=== PATIENT | female | born 1980 | race Caucasian/White ===

== ENCOUNTER 2016-12-16 19:16 | Emergency (ER) | payer SELFPAY ==
--- NOTE | ~2016-12-16 | ER ---
PATIENT'S NAME: LIBERTAD BARRIOS [facility] AGE: 36 Y [address] ROOM: [place] [address] LOCATION: [facility] ADMIT DATE: 12/16/2016 ER/Outpatient Report DISCHARGE DATE: 12/16/2016 FAMILY PHYSICIAN: PHYSICIAN, NO ATTENDING PHYSICIAN: Vinnie Romo Time of Arrival: 1939 hours. Time of Evaluation: 1945 hours. CHIEF COMPLAINT: Finger injury. HISTORY OF PRESENT ILLNESS: The patient reports 2 days ago, she was helping remodel a trailer when she got a puncture wound to the right index finger. She got poked in the proximal metacarpal area with a piece of wire. She has noticed over the 2 days, it has become much more swollen, red, tender, and has some numbness to the tip of her finger. Denies any other injury. She states when she was younger, she had some hallucinations with penicillin, but she does not think it was related to the medicine, was more related to the illness that she had at that time. ALLERGIES: NONE. Possible Penicillin PAST MEDICAL HISTORY: Factor V Leiden. PAST SURGICAL HISTORY: Cholecystectomy. Last menstrual period was 8 days ago. SOCIAL HISTORY: She does smoke a pack per day and has for the past 20 years. Denies use of drugs and alcohol. REVIEW OF SYSTEMS: All negative other than those mentioned in the HPI. She states her last tetanus shot was at least 9 years ago. PHYSICAL EXAMINATION: VITAL SIGNS: Height is 5 feet 7 inches, weight is 86.6 kg, blood pressure is 121/65, pulse of 87, respirations 18, temperature of 97.9 tympanic, O2 saturations 97% on room air. GENERAL: She is awake, alert, and oriented x4. PATIENT'S NAME: LIBERTAD BARRIOS [facility] AGE: 36 Y [address] ROOM: [place] [address] LOCATION: [facility] ADMIT DATE: 12/16/2016 ER/Outpatient Report DISCHARGE DATE: 12/16/2016 FAMILY PHYSICIAN: PHYSICIAN, NO ATTENDING PHYSICIAN: Vinnie Romo SKIN: [place], warm, and dry. RESPIRATIONS: Even and nonlabored. LUNGS: Clear throughout. HEART: Regular rate and rhythm. EXTREMITIES: The patient has redness and swelling of the proximal right index finger. There is a scabbed puncture wound site near the metacarpal phalangeal joint. She has strong radial and ulnar pulses. Nail beds pink with less than 3-second darius. She does have range of motion of the finger. It is limited due to the swelling. Area around the puncture wound is soft. EMERGENCY ROOM COURSE: The patient's tetanus was updated with a Tdap. She was given Rocephin 1 g IM. She was monitored after the injection and no signs of allergic reaction noted. IMPRESSION: Infected right index finger due to puncture wound. PLAN: The patient will be discharged home. She is to wash with soap and water at least twice a day. Tylenol or ibuprofen for fever or discomfort. Prescription was written for cephalexin, and she is to follow up with her primary provider in the next 2 to 3 days. She verbalized understanding. NINOSKA SILVA APRN FOR MD OANH POWELL/emerson /[id number] d: 12/17/16 0129 t: 12/17/16 1809, OUTPATIENT REPORT
== END 2016-12-16 20:29 | disposition disaster alternative care site (69) ==
LOC: GACC 19:16
DX: S61.230A Puncture wound without foreign body of right index finger without damage to nail, initial encounter (principal); L08.9 Local infection of the skin and subcutaneous tissue, unspecified; F17.210 Nicotine dependence, cigarettes, uncomplicated; Z90.49 Acquired absence of other specified parts of digestive tract; Z23 Encounter for immunization; Z88.0 Allergy status to penicillin; W26.8XXA Contact with other sharp object(s), not elsewhere classified, initial encounter
CPT/HCPCS: J0696